=== PATIENT | female | born 1970 | race African-American/Black ===

== ENCOUNTER 2017-09-13 16:36 | Emergency (ER) | payer OTHER ==
[~2017-09-13] VITALS: Ht 165.1 cm; Wt 72.6 kg
[2017-09-13 17:19] VITALS: BP 142/91
[2017-09-13] MEDS ORDERED: IBUPROFEN600 MG ORAL (18:07)
[2017-09-13] MEDS ORDERED: LIDODERM700 M1 TOPIC (18:07)
--- NOTE | 2017-09-13 18:07 | Emergency Room Report ---
History of Present Illness General Chief Complaint: Shoulder Injury Source: Patient Present Illness HPI 46-year-old female presents emergency department complaining of 10 out of 10 in severity localized pain to the left lateral and posterior shoulder times one day. Patient reports slip and fall as she was walking down stairs at her home earlier today. Patient reports moderate tenderness to the left posterior shoulder and lateral aspect of the shoulder. Patient reports pain with raising her arm. denies bruising or open wounds She denies hitting her head or having loss of consciousness. Patient denies neck or back pain. musculoskeletal negative Allergies: Coded Allergies: No Known Allergies (Unverified , 09/13/17) Patient History Past Medical History: see triage record Past Surgical History: none Pertinent Family History: none Last Menstrual Period: 08/30/17 Now: No Reviewed Nursing Documentation: PMH: Agreed; PSxH: Agreed Nursing Documentation-PMH Past Medical History: No Stated History Review of Systems All Other Systems: negative except mentioned in HPI Physical Exam Vital Signs Date Time Temp Pulse Resp B/P (MAP) Pulse Ox O2 Delivery O2 Flow Rate FiO2 09/13/17 16:41 98.5 86 18 142/91 96 Room Air 98.4 Sp02 EP Interpretation: reviewed, normal General Appearance: no apparent distress, alert, GCS 15, non-toxic Head: normocephalic, atraumatic ENT: hearing grossly normal, normal voice Neck: full range of motion, no bony tend Respiratory: lungs clear, normal breath sounds, speaking full sentences Cardiovascular #1: regular rate, rhythm, normal capillary refill Cardiovascular #2: 2+ radial (L) Musculoskeletal: back normal, gait/station normal, normal range of motion, tender - Left shoulder, FROM, no clicking, no obvious deformity, NVI Neurologic: alert, oriented x3, responsive, motor strength/tone normal, sensory intact, normal gait, speech normal, grossly normal Psychiatric: judgement/insight normal Skin: normal color, no rash, warm/dry, well hydrated Medical Decision Making PA Attestation Dr. Wilkes is my supervising physician whom pt. management has been discussed with. Diagnostic Impression: Primary Impression: Contusion of shoulder, right Qualified Codes: S40.011A - Contusion of right shoulder, initial encounter Additional Impression: Normal result on radiologic exam ER Course 46-year-old female presents emergency department complaining of 10 out of 10 in severity localized pain to the left lateral and posterior shoulder times one day. Patient reports slip and fall as she was walking down stairs at her home earlier today. Patient reports moderate tenderness to the left posterior shoulder and lateral aspect of the shoulder. Patient reports pain with raising her arm. denies bruising or open wounds She denies hitting her head or having loss of consciousness. Patient denies neck or back pain. musculoskeletal negative Ddx considered but are not limited to Fracture, dislocation, contusion, Sprain/ Strain/Spasm Vital signs: are WNL, pt. is afebrile H&PE are most consistent with musculoskeletal injury will perform imaging to r/ o fractures/dislocations. ORDERS: - X-ray Left shoulder 3 views - negative for fx, Dislocation, or significant soft tissue injury, per preliminary read in ED, and signed by ASH Santiago, my supervising physician has reviewed, and agrees with my interpretation. ED INTERVENTIONS: - Motrin PO d/w pt. conservative treatment, and to follow up with a primary care provider. pt given a list of primary care clinics for follow up. d/w pt. to return to the ED with worsening or new symptoms. DISCHARGE: At this time pt. is stable for d/c to home. Will provide printed patient care instructions, and any necessary prescriptions. Care plan and follow up instructions have been discussed with the patient prior to discharge. Other X-Ray Diagnostic Results Other X-Ray Diagnostic Results : X-Ray ordered: Left Shoulder # of Views/Limited Vs Complete: 3 View Indication: Pain EP Interpretation: Yes ASH Xray: Interpretation reviewed, by supervising MD, and agrees with findings. Interpretation: no dislocation, no soft tissue swelling, no fractures Impression: No acute disease Electronically Signed by: Sejal Santiago PA-C Last Vital Signs Date Time Temp Pulse Resp B/P (MAP) Pulse Ox O2 Delivery O2 Flow Rate FiO2 09/13/17 17:48 98.4 09/13/17 17:19 86 18 142/91 96 Room Air Disposition: HOME, SELF-CARE Condition: Stable Scripts Lidocaine (Lidoderm) 1 Each Adh..patch 1 PATCH TOPIC DAILY, #30 PATCH 0 Refills Patch(es) may remain in place for up to 12 hours in any 24-hour period. Prov: Sejal aSntiago 09/13/17 Ibuprofen* (MOTRIN*) 600 Mg Tablet 600 MG ORAL THREE TIMES A DAY, #30 TAB 0 Refills Prov: Sejal Santiago 09/13/17 Referrals: NON PHYSICIAN (PCP) Patient Instructions: Shoulder Pain Additional Instructions: Take medications as directed. Follow up with a Primary Care Provider in 3-5 days, even if your symptoms have resolved. --Please review list of primary care clinics, if you do not already have a primary care provider Return sooner to ED if new symptoms occur, or current symptoms become worse. - Please note that this Emergency Department Report was dictated using [employer] professional technology software, occasionally this can lead to erroneous entry secondary to interpretation by the dictation equipment. Sejal Santiago Sep 13, 2017 18:06
[2017-09-13 18:25] VITALS: BP 133/90
--- NOTE | 2017-09-14 08:52 | Diagnostic Imaging Report ---
Indication: Left shoulder pain Technique: 3 views of the left shoulder Comparison: none Findings: No acute fractures. No dislocations. The joint spaces are preserved Impression: Negative
== END 2017-09-13 18:28 | disposition home or self-care (01) ==
LOC: EMR 17:57
DX: S40.012A Contusion of left shoulder, initial encounter (principal); W10.9XXA Fall (on) (from) unspecified stairs and steps, initial encounter; Y92.009 Unspecified place in unspecified non-institutional (private) residence as the place of occurrence of the external cause
CPT/HCPCS: 99284